=== PATIENT | female | born 1995 | race Two or more races ===

== ENCOUNTER 2025-01-23 13:56 | Emergency (ER) | payer MEDICAID, SELFPAY ==
[2025-01-23 14:09] VITALS: BP 127/88; PULSE 70; RESP 20; TEMP 37.1; O2SAT 100
--- NOTE | 2025-01-23 14:11 | XR_ITS ---
Examination: Abdomen sonogram, Limited Date and time of exam: January 23, 2025, 1449 hours INDICATIONS: Right upper abdominal pain beginning 1 week ago Technique: Real-time lion scale transabdominal sonographic images of the upper abdomen obtained. Findings: Multiple gallstones Normal gallbladder wall Common bile duct 0.6 cm no definite stones Pancreatic head 2.5 cm Liver 16.8 cm fatty infiltration Normal hepatopetal portal venous flow Patent IVC IMPRESSION: Cholelithiasis, negative for cholecystitis Abnormal enlargement common bile duct 6 mm, as clinically warranted, consider MRCP follow-up to exclude common bile duct stones
--- NOTE | 2025-01-23 14:12 | EDNOTE_ITS ---
ED Abdominal Pain RME/HPI General Chief Complaint: Abdominal Pain Stated complaint: UPPER ABD PAIN, N/V Time seen by provider: 01/23/25 14:09 Arrival date/time: 01/23/25 13:56 29-year-old female with no known medical history presents to the emergency room with a chief complaint of epigastric and right upper quadrant abdominal pain x 2 days. Patient has also had multiple episodes of vomiting. Source: patient Mode of arrival: ambulatory Limitations: no limitations Related Data Home Medications ?Medication ?Instructions ?Recorded ?Confirmed vit no.95-ferrous 1 tab PO QDAY 08/03/2307/11 fumarate 28 mg-folic acid 800 mcg tablet () Previous Rx's ?Medication ?Instructions ?Recorded hydrocodone 5 mg-acetaminophen 325 1 tab PO BID PRN pa in #10 tabs 12/21/23 mg tablet Allergies Allergy/AdvReac Type Severity Reaction Status Date / Time No Known Allergies Allergy Verified 08/03/23 06:00 Review of Systems Review of Systems Systems Reviewed: All systems reviewed, normal except as documented Constitutional Constitutional: Reports system reviewed and no additional complaints, except as documented, Denies fatigue, Denies fever(s), Denies headache(s) and Denies weakness Eyes Eyes: Reports system reviewed and no additional complaints, except as documented, Denies blurry vision and Denies change in vision ENT Ears, Nose, Mouth, and Throat: Reports system reviewed and no additional complaints, except as documented, Denies otalgia, Denies headache(s), Denies nasal congestion, Denies throat swelling and Denies vertigo Cardiovascular Cardiovascular: Reports system reviewed and no additional complaints, except as documented, Denies chest pain, Denies dyspnea and Denies dyspnea on exertion Respiratory Respiratory: Reports system reviewed and no additional complaints, except as documented, Denies chest congestion, Denies cough, Denies dyspnea, Denies dyspnea on exertion and Denies wheezing Gastrointestinal Gastrointestinal: Reports system reviewed and no additional complaints, except as documented, Reports abdominal pain, Reports cramping, Reports nausea and Reports vomiting Genitourinary Genitourinary: Reports system reviewed and no additional complaints, except as documented Musculoskeletal Musculoskeletal: Reports system reviewed and no additional complaints, except as documented and Denies back pain Integumentary/Breasts Skin/Breast: Reports system reviewed and no additional complaints, except as documented and Denies wounds Neurologic Neurologic: Reports system reviewed and no additional complaints, except as documented, Denies confusion, Denies headache(s), Denies lack of coordination, Denies vertigo and Denies weakness Psychiatric Psychiatric: Reports system reviewed and no additional complaints, except as documented, Denies anxiety, Denies confusion, Denies depression, Denies paranoia, Denies suicidal ideation and Denies tactile hallucinations Endocrine Endocrine: Reports system reviewed and no additional complaints, except as documented and Denies fatigue Hematologic/Lymphatic Hematologic/Lymphatic: Reports system reviewed and no additional complaints, except as documented and Denies lymphadenopathy Allergic/Immunologic Allergic/Immunologic: Reports system reviewed and no additional complaints, except as documented, Denies throat swelling, Denies urticaria and Denies wheezing Past Medical History Past Medical History NEUROLOGIC: Negative Neurological Disorders or Seizures CARDIAC: Positive Cardiac Disorders (HX. OF PREECLAMPSIA.); Negative Congestive Heart Failure RESPIRATORY: Positive Asthma (LAST USED [place] 3MO AGO.); Negative Chronic Obstructive Pulmonary Disease (COPD) GASTROINTESTINAL: Negative Gastrointestinal Disorders, Hepatitis or Colorectal Cancer GENITOURINARY: Negative Genitourinary Disorders, Renal Disease or Prostate Cancer REPRODUCTIVE: Positive Syphilis; Negative Breast Cancer, Endometriosis, Pelvic Inflammatory Disease, Previous Pregnancies, Testicular Cancer or Uterine Prolapse MUSCULOSKELETAL: Negative Musculoskeletal Disorders or Bone Cancer ENDOCRINE: Negative Endocrine Disorders, Diabetes Mellitus Type 1 or Diabetes Mellitus Type 2 HEMATOLOGIC: Negative Blood Disorders PSYCHO/SOCIAL: Negative Depression or Anxiety OTHER HISTORY: Positive Hospitalization (CHILDBIRTH); Negative Autoimmune Disease, Down Syndrome, Developmental Delay, Shingles, Falls, Blood Transfusions, Blood Transfusion Reaction, Anesthesia Reactions, MRSA, VRSA, Vancomycin-Resistant Enterococci, Human Immunodeficiency Virus (HIV), Chicken Pox, Measles, Mumps, Rubella (Japanese Measles), Pertussis, Clostridium Difficile, Cancer, Breast Cancer, Cervical Cancer, Colorectal Cancer, Lung Cancer, Ovarian Cancer, Prostate Cancer or Testicular Cancer Family History FAMILY HISTORY: Positive Family Respiratory Disorders (EXTENSIVE FAMILY HX. OF ASTHMA.) and Family Surgery (MOTHER-BRAIN TUMOR REMOVAL.); Negative Family Psychiatric Problems, Family Cardiac Disorders, Family Gastrointestinal Problems, Family Cancer or Family Anesthesia Reaction Surgical History SURGICAL: Positive Section (X1) Social History SMOKING STATUS: Never smoker SECOND HAND EXPOSURE: No ED Exam General Limitations: Present no limitations General appearance: Present alert and in no apparent distress Head Head exam: Present atraumatic Eye Eye exam: Present normal appearance, PERRL and EOMI ENT ENT exam: Present normal exam, normal oropharynx and mucous membranes moist Neck Neck exam: Present normal inspection, full ROM and trachea midline Chest Chest inspection: Present normal inspection and symmetric chest wall rise Respiratory Respiratory exam: Present normal lung sounds bilaterally Cardiovascular Cardiovascular exam: Present regular rate, normal rhythm and normal heart sounds Abdominal Exam Abdominal exam: Present soft, tenderness, normal bowel sounds and Doran's sign Abdominal tenderness: Present RUQ, epigastrium and moderate Extremities Exam Extremities exam: Present normal inspection and full ROM Back Exam Back exam: Present normal inspection and full ROM Neurological Exam Neurological exam: Present alert, oriented X3 and CN II-XII intact Psychiatric Psychiatric exam: Present normal affect and normal mood Skin Skin exam: Present warm, dry, intact and normal color Course Quality Measures none Orders Category Date Time Status US gall bladder Stat Exams 01/23/25 14:11 Completed CBC Stat Lab 01/23/25 14:18 Completed CMP [Comprehensive Metabolic Panel] Stat Lab 01/23/25 14:18 Completed HCG Qualitative,Urine Stat Lab 01/23/25 15:39 Completed Lipase Stat Lab 01/23/25 14:18 Completed UA [Urinalysis] Stat Lab 01/23/25 15:39 Completed Urine Culture Stat Lab 01/23/25 15:39 Received Ondansetron Odt [Zofran Odt] Med 01/23/25 14:11 Discontinued 4 mg PO X1 ONE Vital Signs Vital signs: Vital Signs Temperature 98.7 F 01/23/25 14:09 Pulse Rate 70 01/23/25 14:09 Respiratory Rate 20 01/23/25 14:09 Blood Pressure 127/88 H 01/23/25 14:09 Pulse Oximetry (%) 100 01/23/25 14:09 Oxygen Delivery Method Room Air 01/23/25 14:09 Abdominal Pain MDM MDM Narrative MDM Narrative:: 29-year-old female with no known medical history presents to the emergency room with a chief complaint of epigastric and right upper quadrant abdominal pain x 2 days. Patient has also had multiple episodes of vomiting. Patient is hemodynamically stable and in no apparent distress Physical examination shows right upper quadrant abdominal pain and tenderness with palpation. The patient is also having tenderness in the epigastric area of the patient's abdomen. Ultrasound of the gallbladder shows cholelithiasis but is negative for any cholecystitis. There is no obstruction in the common bile duct. Bilirubin and liver enzymes are within normal limits. CBC CMP are within normal limits. Patient was educated to follow-up with a primary care provider as a referral to a general surgeon will be needed for removal of her gallbladder Patient was discharged and educated to follow-up with primary care provider in the next 24 to 48 hours and return to the emergency room for any evidence of worsening signs or symptoms Patient data External records reviewed:: [facility] previous records Clinical information provided by:: patient Social determinants that could affect healthcare access:: none Patient has the following chronic illnesses:: No chronic illness How is presenting disease/condition affected by chronic disease/condition?: no chronic disease Evaluation data The following diagnostics were reviewed and interpreted by me:: lab results and radiology exam(s) Lab and/or radiology exams considered but not ordered:: Labs and radiology exams considered and ordered Interpretation Summary: Ultrasound gallbladder-Findings: Multiple gallstones Normal gallbladder wall Common bile duct 0.6 cm no definite stones Pancreatic head 2.5 cm Liver 16.8 cm fatty infiltration Normal hepatopetal portal venous flow Patent IVC IMPRESSION: Cholelithiasis, negative for cholecystitis Abnormal enlargement common bile duct 6 mm, as clinically warranted, consider MRCP follow-up to exclude common bile duct stones Medications / Prescriptions Medications or Prescriptions considered but not ordered:: Medication given Medication administrations:: Medication Administration History Discontinued Medications Ondansetron HCl (Ondansetron Odt 4 Mg Tabrap) 4 mg PO X1 ONE; Protocol Stop: 01/23/25 14:12 Last Admin: 01/23/25 14:16 Dose: 4 mg Documented By: OA Medication given Consultations Consultation(s) initiated? (list below): No Diagnosis Differential diagnosis abdominal pain: abdominal pain, gastroenteritis and other (Cholelithiasis/cholecystitis) Most likely diagnosis given after review of the tests above:: Cholelithiasis Admission Indicated Admission indicated?: not indicated Admission Request Was there a request for admission?: No Disposition Plan Disposition Plan: Discharge Discharge Attestation Discharge Attestation: The patient and all family members were given an opportunity to ask questions and understood the discharge instructions. Discharge instructions specifically effects, indications for sooner follow up or return to the emergency department, and the expected course of current diagnosis. Patient condition: Stable Discharge Plan Plan Patient Disposition: HOME (Self Care) Discharge Disposition comment: Stable Prescriptions/Referrals Prescriptions/Med Rec: No Action PNV no.95-ferrous fumarate-FA [] 28 mg iron- 800 mcg tablet 1 tab PO QDAY Patient Comments: TAKE 1 TABLET BY MOUTH EVERY DAY hydrocodone-acetaminophen 5-325 mg tablet 1 tab PO BID MDD 10mg PRN (Reason: pain) Qty: 10 0RF Referrals: Kalpesh Bravo MD [Primary Care Provider, Family Practice] - In 1 week Problem List Clinical Impression: Cholelithiasis Patient/Caregiver Discharge Instructions Education Materials: What Are Gallstones, Treating Gallstones, ED Gallstones with Biliary Colic Additional Instructions: Please follow-up with your primary care provider in the next 24 to 48 hours Your ultrasound of your gallbladder found multiple gallstones. At this time your gallbladder does not need to be removed in an emergency setting Please follow-up with your primary care provider as a referral to a general surgeon for an outpatient removal of her gallbladder may be indicated Your blood work was negative for any acute infection or any obstruction in your common bile duct For any evidence of worsening signs or symptoms return to emergency room immediately Print Language: Faroese Stand Alone Forms: Svetlana Award Info., Work/School Release, Patient Portal Info Letter
[2025-01-23] MEDS: ONDANSETRON ODT 4 MG TABRAP PO (14:16)
[2025-01-23 14:26] LABS: Basophils # (Auto) 0.1 Thou/mm3 (0.0-0.2); Basophils % (Auto) 0 % (0-2.5); Eosinophils # (Auto) 0.2 Thou/mm3 (0.0-0.5); Eosinophils % (Auto) 2 % (0-10); Hematocrit 39.2 % (36.0-46.0); Hemoglobin 13.4 g/dL (12.0-16.0); Immature Granulocytes Auto 0.04 Thou/mm3 (0.00-0.00); Lymphocytes # (Auto) 3.3 Thou/mm3 (1.0-4.8); Lymphocytes % (Auto) 28 % (10-50); Mean Corpuscular HGB Conc 34.2 g/dl (31.0-37.0); Mean Corpuscular Hemoglobin 28.9 pg (25.0-35.0); Mean Corpuscular Volume 85 fL (80-100); Monocytes # (Auto) 0.8 Thou/mm3 (0.0-0.8); Monocytes % (Auto) 7 % (0-12); Neutrophils # (Auto) 7.2 Thou/mm3 (1.8-7.7); Neutrophils % (Auto) 62 % (37-80); Nucleated Red Blood Cell # 0.00 Thou/mm3 (0.00-0.00); Nucleated Red Blood Cell % 0 /100 WBC (0); Platelet Count 287 Thou/mm3 (140-440); RDW Standard Deviation 38.9 fL (36.4-46.3); Red Blood Count 4.63 Miln/mm3 (4.00-5.20); White Blood Count 11.6 Thou/mm3 (3.6-11.0)
[2025-01-23 14:46] LABS: Alanine Aminotransferase 29 U/L (10-49); Albumin, Serum 4.5 gm/dL (3.5-5.0); Albumin/Globulin Ratio 1.8 (1.2-2.2); Alkaline Phosphatase 179 U/L (46-116); Anion Gap 8 (7-16); Aspartate Amino Transferase 37 U/L (0-34); BUN/Creatinine Ratio 18 Ratio (12-20); Bilirubin,Total 0.5 mg/dL (0.3-1.2); Blood Urea Nitrogen 11 mg/dL (9-23); Calcium 9.1 mg/dL (8.3-10.6); Calcium (Corrected) 9.1 mg/dL (8.5-10.1); Carbon Dioxide 27.3 mMol/L (20.0-31.0); Chloride 106 mMol/L (98-107); Creatinine (Component) 0.6 mg/dL (0.6-1.3); Globulin 2.5 gm/dL (2.3-3.5); Glucose 88 mg/dL (74-106); Lipase 37 U/L (12-53); Osmolality,Calculated 279 (275-295); Potassium 3.8 mMol/L (3.4-5.1); Sodium 141 mMol/L (136-145); Total Protein 7.0 gm/dL (5.7-8.2); eGFR > 60 See Note
[2025-01-23 15:50] LABS: Collection Type, Urine Clean Catch
[2025-01-23 15:53] LABS: HCG Qualitative,Urine Negative
[2025-01-23 15:54] LABS: Bacteria,Urine Rare; Bilirubin,Urine Negative (Negative); Blood,Urine Negative (Negative); Clarity,Urine Clear (Clear/Hazy); Color,Urine Yellow (Lt Yel-Yel); Glucose, Urine Negative (Negative); Ketones,Urine Negative (Negative); Leukocyte Esterase,Urine Negative (Negative); Nitrite,Urine Negative (Negative); PH,Urine 6.5 (5.0-7.0); Protein,Urine Trace (Neg - Trace); RBC,Urine 5 /hpf (0-3); Specific Gravity,Urine 1.034 (1.001-1.035); Squamous Epithelial Cell,Urine 11 /hpf (0-5); Urobilinogen,Urine 2.0 mg/dL (0.0-1.0); WBC,Urine 2 /hpf (0-5)
== END 2025-01-23 16:50 | disposition home or self-care (01) ==
PROVIDERS: Emergency Provider Nurse Practitioner Family; PCP Family Medicine
DX: K80.70 Calculus of gallbladder and bile duct without cholecystitis without obstruction (principal); K76.0 Fatty (change of) liver, not elsewhere classified
CPT/HCPCS: 36415; 76705; 80053; 81001; 81025; 83690; 85025; 87086; 99283; Q0162

== ENCOUNTER 2025-01-23 21:04 | Emergency (ER) | payer MEDICAID, SELFPAY ==
[2025-01-23 21:46] VITALS: BP 127/82; PULSE 68; RESP 20; TEMP 36.4; O2SAT 100
--- NOTE | 2025-01-23 21:51 | EDNOTE_ITS ---
ED Abdominal Pain RME/HPI General Chief Complaint: Abdominal Pain Stated complaint: ABD PAIN Time seen by provider: 01/23/25 21:40 Arrival date/time: 01/23/25 21:04 29-year-old female patient came in for evaluation regarding right upper quadrant pain. Patient was having right upper quadrant pain since last night, came here this morning, and was noted to have multiple gallstones with no sign of acute cholecystitis. Patient was sent home on [place]. Patient took [place] however pain is still lingering, at this time severity 10 out of 10 associated with nausea and vomiting. No fever noted patient denies any diarrhea or constipation denies any other complaints no medications taken prior to ER visit. Related Data Home Medications ?Medication ?Instructions ?Recorded ?Confirmed vit no.95-ferrous 1 tab PO QDAY 08/03/2307/11 fumarate 28 mg-folic acid 800 mcg tablet () Previous Rx's ?Medication ?Instructions ?Recorded hydrocodone 5 mg-acetaminophen 325 1 tab PO BID PRN pa in #10 tabs 12/21/23 mg tablet hydrocodone 5 mg-acetaminophen 325 1 tab PO BID PRN pa in #10 tabs 01/23/25 mg tablet Allergies Allergy/AdvReac Type Severity Reaction Status Date / Time No Known Allergies Allergy Verified 01/23/25 21:05 Review of Systems Review of Systems Narrative Review of Systems: Review of system reviewed and within normal limits except mentioned in HPI ED Exam Narrative Physical exam: VITAL SIGNS: Reviewed. GENERAL APPEARANCE: Alert and interactive, follows commands, no acute distress, HEAD AND FACE: Non-traumatic. ENT: PERRL, pink conjunctivitis, eyelid no trauma, Mucous membrane moist. NECK: Supple, nontender, no nuchal rigidity. CHEST: No tenderness, no crepitus, no paradoxical movement, no retractions. LUNGS: Clear, well ventilated, symmetric, no rales, no wheezing, no ronchi, no stridor, good breath sounds bilaterally. HEART: Regular rate, regular rhythm, no murmur, no gallops. ABDOMEN: Soft, positive bowel sounds, nondistended, no guarding, right upper quadrant tenderness, no rebound, no masses, RECTAL: Deferred. GENITAL: Deferred. NEUROLOGICAL: Gross motor function intact sensory function intact, Appropriate for age. MUSCULOSKELETAL: low back nontender, full range of motion. EXTREMITIES: Nontender, full range of motion. SKIN: Color pink, dry, no rash, no lacerations, no abrasions, no contusions. LYMPHATICS: Deferred. Course Quality Measures none Orders Category Date Time Status CT Screening NOW Care 01/23/25 22:44 Completed IV [Insert IV] NOW Care 01/23/25 22:10 Completed MRI Screening NOW Care 01/23/25 23:12 Completed Referral - Sales Order Coordinator Stat Cons 01/24/25 11:[address] abdomen pelvis w con Stat Exams 01/23/25 22:44 Completed MR MRCP Stat Exams 01/24/25 Completed CBC [CBC] Stat Lab 01/23/25 22:06 Completed CMP [Comprehensive Metabolic Panel] Stat Lab 01/23/25 22:06 Completed Lipase Stat Lab 01/23/25 22:06 Completed Cefoxitin [Mefoxin] 2 gm Med 01/23/25 22:45 Discontinued SODIUM CHLORIDE 0.9% (Popper) [Ns 0.9% (P)] 50 ml IV X1 Famotidine Inj [Pepcid Inj] Med 01/23/25 21:49 Discontinued 20 mg IVP X1 ONE HYDROmorphone INJ [Dilaudid Inj] Med 01/24/25 00:30 Discontinued 0.5 mg IVP Q30MIN PRN HYDROmorphone INJ [Dilaudid Inj] Med 01/24/25 09:52 Discontinued 0.5 mg IVP X1 ONE Ketorolac Inj [Toradol Inj] Med 01/23/25 21:49 Discontinued 30 mg IVP X1 ONE Ondansetron Inj [Zofran Inj] Med 01/23/25 21:49 Discontinued 4 mg IVP X1 ONE Ondansetron Inj [Zofran Inj] Med 01/24/25 00:27 Discontinued 4 mg IVP X1 ONE Ondansetron Inj [Zofran Inj] Med 01/24/25 09:52 Discontinued 4 mg IVP X1 ONE Piper/Tazo 3.375 gm Premix [Zosyn] Med 01/24/25 11:16 Discontinued 3.375 gm in 50 ml IV X1 Ringers Lactated 1000 ml [Lactated Ringers] 1,000 ml Med 01/23/25 21:50 Discontinued IV 999 mls/hr Ringers Lactated 1000 ml [Lactated Ringers] 1,000 ml Med 01/24/25 11:19 Discontinued IV 999 mls/hr Vital Signs Vital signs: Vital Signs Temperature 97.6 F 01/23/25 21:46 Pulse Rate 68 01/23/25 21:46 Respiratory Rate 20 01/23/25 21:46 Blood Pressure 127/82 01/23/25 21:46 Pulse Oximetry (%) 100 01/23/25 21:46 Oxygen Delivery Method Room Air 01/23/25 21:46 Abdominal Pain MDM MDM Narrative MDM Narrative:: 29-year-old female patient came in for evaluation regarding right upper quadrant pain. Patient was having right upper quadrant pain since last night, came here this morning, and was noted to have multiple gallstones with no sign of acute cholecystitis. Patient was sent home on [place]. Patient took [place] however pain is still lingering, at this time severity 10 out of 10 associated with nausea and vomiting. No fever noted patient denies any diarrhea or constipation denies any other complaints no medications taken prior to ER visit. Patient's WBC count today went up to 25,000 from 11,000 several hours ago. LFTs and total bili was also noted to be slightly elevated. I did a CT scan of the abdomen pelvis with contrast. Patient probably needing MRCP. In the morning MRCP showed acute pancreatitis, common bile duct stone x 2 with dilated common bile duct, and she also showed acute calculous cholecystitis. Patient received multiple pain medication, morphine and Dilaudid, IV fluids, IV cefoxitin last night and today patient received IV Zosyn. Plan of care discussed with the patient, who agrees to be transferred Patient is to be transferred for ERCP. nobody in this hospital is doing ERCP at this time. I discussed the case with GI specialist from [facility], who accepted the patient. Dr. Palma none Patient data External records reviewed:: None Clinical information provided by:: patient Social determinants that could affect healthcare access:: none Patient has the following chronic illnesses:: None How is presenting disease/condition affected by chronic disease/condition?: no chronic disease Evaluation data The following diagnostics were reviewed and interpreted by me:: lab results and radiology exam(s) Lab and/or radiology exams considered but not ordered:: None Interpretation Summary: Laboratory workup significant for a lipase above 3500, leukocytosis of 25,000, MRCP showed acute calculous cholecystitis with acute pancreatitis and common bile duct stone with dilated common bile duct Medications / Prescriptions Medications or Prescriptions considered but not ordered:: None Medication administrations:: Medication Administration History Discontinued Medications Famotidine (Famotidine Inj 10 Mg/Ml Vial 2 Ml) 20 mg IVP X1 ONE Stop: 01/23/25 21:50 Last Admin: 01/23/25 22:16 Dose: 20 mg Documented By: JESSICA Hydromorphone HCl (Hydromorphone Inj 2 Mg/Ml Vial) 0.5 mg IVP Q30MIN PRN PRN Reason: PAIN Stop: 01/29/25 00:29 Last Admin: 01/24/25 06:40 Dose: 0.5 mg Documented By: Admin: 01/24/25 00:42 Dose: 0.5 mg Documented By: JESSICA Hydromorphone HCl (Hydromorphone Inj 2 Mg/Ml Vial) 0.5 mg IVP X1 ONE Stop: 01/24/25 09:53 Last Admin: 01/24/25 09:58 Dose: 0.5 mg Documented By: BY Lactated Ringer's (Lactated Ringers) 1,000 mls @ 999 mls/hr IV .Q1H1M ONE Stop: 01/23/25 22:50 Last Infusion: 01/23/25 23:31 Dose: Infused Documented By: Admin: 01/23/25 22:18 Dose: 999 mls/hr Documented By: JESSICA Cefoxitin Sodium 2 gm/ Sodium (Chloride) 50 mls @ 100 mls/hr IV X1 ONE Stop: 01/23/25 23:14 Last Infusion: 01/24/25 00:06 Dose: Infused Documented By: Admin: 01/23/25 23:29 Dose: 100 mls/hr Documented By: JESSICA Piperacillin/Tazobactam/Dextrose (Zosyn) 3.375 gm in 50 mls @ 100 mls/hr IV X1 ONE; Protocol Stop: 01/24/25 11:45 Last Infusion: 01/24/25 12:18 Dose: Infused Documented By: Admin: 01/24/25 11:48 Dose: 100 mls/hr Documented By: GLENN Lactated Ringer's (Lactated Ringers) 1,000 mls @ 999 mls/hr IV .Q1H1M ONE Stop: 01/24/25 12:19 Last Admin: 01/24/25 11:46 Dose: 999 mls/hr Documented By: GLENN Ketorolac Tromethamine (Ketorolac Inj 30 Mg/Ml Vial) 30 mg IVP X1 ONE Stop: 01/23/25 21:50 Last Admin: 01/23/25 22:13 Dose: 30 mg Documented By: JESSICA Ondansetron HCl (Ondansetron Inj 2 Mg/Ml Inj 2 Ml) 4 mg IVP X1 ONE; Protocol Stop: 01/23/25 21:50 Last Admin: 01/23/25 22:11 Dose: 4 mg Documented By: JESSICA Ondansetron HCl (Ondansetron Inj 2 Mg/Ml Inj 2 Ml) 4 mg IVP X1 ONE; Protocol Stop: 01/24/25 00:28 Last Admin: 01/24/25 00:40 Dose: 4 mg Documented By: JESSICA Ondansetron HCl (Ondansetron Inj 2 Mg/Ml Inj 2 Ml) 4 mg IVP X1 ONE; Protocol Stop: 01/24/25 09:53 Last Admin: 01/24/25 09:58 Dose: 4 mg Documented By: BY See above Consultations Consultation(s) initiated? (list below): Yes Consultation #1 (Physician, Specialty, Details): GI specialist from [facility] Diagnosis Differential diagnosis abdominal pain: abdominal pain and pancreatitis Most likely diagnosis given after review of the tests above:: Acute pancreatitis, acute calculous cholecystitis, choledocholithiasis obstructive jaundice Admission Indicated Admission indicated?: indicated Admission Request Was there a request for admission?: No Disposition Plan Disposition Plan: Transfer Discharge Plan Plan Patient Disposition: [facility] Pt Being Transferred to: [facility] Prescriptions/Referrals Prescriptions/Med Rec: No Action PNV no.95-ferrous fumarate-FA [] 28 mg iron- 800 mcg tablet 1 tab PO QDAY Patient Comments: TAKE 1 TABLET BY MOUTH EVERY DAY hydrocodone-acetaminophen 5-325 mg tablet 1 tab PO BID MDD 10mg PRN (Reason: pain) Qty: 10 0RF hydrocodone-acetaminophen 5-325 mg tablet 1 tab PO BID MDD 10mg PRN (Reason: pain) Qty: 10 0RF Referrals: No Primary/Family,Physician [Referring Provider] - In 1 week Problem List Clinical Impression: Pancreatitis, Acute calculous cholecystitis, Choledocholithiasis Patient/Caregiver Discharge Instructions Print Language: Wolof Stand Alone Forms: [employer] Award Info., Patient Portal Info Letter
[2025-01-23] MEDS: ONDANSETRON INJ 2 MG/ML INJ 2 ML 4 MG IVP (22:11)
[2025-01-23] MEDS: KETOROLAC INJ 30 MG/ML VIAL IVP (22:13)
[2025-01-23] MEDS: FAMOTIDINE INJ 10 MG/ML VIAL 2 ML 20 MG IVP (22:16)
[2025-01-23] MEDS: RINGERS LACTATED 1000 ML 1,000 ML 999 ML IV (22:18)
[2025-01-23 22:22] LABS: Basophils # (Auto) 0.1 Thou/mm3 (0.0-0.2); Basophils % (Auto) 0 % (0-2.5); Eosinophils # (Auto) 0.1 Thou/mm3 (0.0-0.5); Eosinophils % (Auto) 0 % (0-10); Hematocrit 41.1 % (36.0-46.0); Hemoglobin 14.1 g/dL (12.0-16.0); Immature Granulocytes Auto 0.12 Thou/mm3 (0.00-0.00); Lymphocytes # (Auto) 2.1 Thou/mm3 (1.0-4.8); Lymphocytes % (Auto) 8 % (10-50); Mean Corpuscular HGB Conc 34.3 g/dl (31.0-37.0); Mean Corpuscular Hemoglobin 28.7 pg (25.0-35.0); Mean Corpuscular Volume 84 fL (80-100); Monocytes # (Auto) 1.3 Thou/mm3 (0.0-0.8); Monocytes % (Auto) 5 % (0-12); Neutrophils # (Auto) 22.0 Thou/mm3 (1.8-7.7); Neutrophils % (Auto) 86 % (37-80); Nucleated Red Blood Cell # 0.00 Thou/mm3 (0.00-0.00); Nucleated Red Blood Cell % 0 /100 WBC (0); Platelet Count 286 Thou/mm3 (140-440); RDW Standard Deviation 39.5 fL (36.4-46.3); Red Blood Count 4.92 Miln/mm3 (4.00-5.20); White Blood Count 25.6 Thou/mm3 (3.6-11.0)
--- NOTE | 2025-01-23 22:44 | XR_ITS ---
Examination: CT abdomen with intravenous contrast CT pelvis with intravenous contrast 2-D coronal reconstructions 2-D sagittal reconstructions Date and time of exam: January 23, 2025, 11:00 p.m INDICATIONS: Right upper abdominal pain today, enlargement common bile duct on gallbladder sonogram today. CTDI: vol (mGy) 9.85 DLP: (mGycm) 616 Technique: Multiple axial sections of the abdomen and pelvis have been obtained. 64 slice high-resolution scanner used. 3 mm axial sections have been obtained, post intravenous injection 60 cc [id number] 2-D sagittal, coronal reconstructions obtained. Low dose protocols were performed. One or more of the following dose reduction techniques were used; automated exposure control, adjustment of the mA and/or KV according to patient size, use of iterative reconstruction technique. Findings: No focal liver lesions Gallstones, gallbladder wall is thickened Enlarged common hepatic common bile duct 8 mm no stones Acute pancreatitis marked edema surrounding the pancreas Spleen is not enlarged No hydronephrosis Aorta normal size Normal appendix No bowel obstruction 25 mm left ovarian cyst Mild free fluid in the pelvis Bladder intact Osseous structures intact IMPRESSION: Acute calculus cholecystitis Enlarged common hepatic common bile duct Acute pancreatitis Consider MRCP follow-up to exclude common bile duct stones
[2025-01-23 22:46] LABS: Alanine Aminotransferase 183 U/L (10-49); Albumin, Serum 4.4 gm/dL (3.5-5.0); Albumin/Globulin Ratio 1.6 (1.2-2.2); Alkaline Phosphatase 203 U/L (46-116); Anion Gap 11 (7-16); Aspartate Amino Transferase 280 U/L (0-34); BUN/Creatinine Ratio 17 Ratio (12-20); Bilirubin,Total 1.3 mg/dL (0.3-1.2); Blood Urea Nitrogen 10 mg/dL (9-23); Calcium 9.2 mg/dL (8.3-10.6); Calcium (Corrected) 9.2 mg/dL (8.5-10.1); Carbon Dioxide 21.5 mMol/L (20.0-31.0); Chloride 107 mMol/L (98-107); Creatinine (Component) 0.6 mg/dL (0.6-1.3); Globulin 2.7 gm/dL (2.3-3.5); Glucose 197 mg/dL (74-106); Osmolality,Calculated 281 (275-295); Potassium 3.1 mMol/L (3.4-5.1); Sodium 139 mMol/L (136-145); Total Protein 7.1 gm/dL (5.7-8.2); eGFR > 60 See Note
--- NOTE | 2025-01-23 23:18 | EDNOTE_ITS ---
Emergency Room Addendum <Aurelia Aberu - Last Filed: 01/24/25 05:30> Addendum Narrative: 2300: Care assumed from Bob Leong NP, (emergency mid-level provider). Past medical, surgical, social and family history reviewed. Vitals and home medications reviewed. Results and treatment plan discussed. I will assume the care of the patient at this time and will follow the patient, pending MRCP. The following addendum documentation note is intended to reflect any pending information, findings, or radiology results not included in the patient?s initial chart by the previous shift scribe. 0830: Care assumed by Dr. Johnson (emergency physician). Past medical, surgical, social and family history reviewed. Vitals and home medications reviewed. Results and treatment plan discussed. They will assume the care of the patient at this time and will follow the patient, pending MRCP. <Nisha Castillo - Last Filed: 01/24/25 08:38> Addendum Narrative: 2300: Care assumed from Bob Leong NP, (emergency mid-level provider). Past medical, surgical, social and family history reviewed. Vitals and home medications reviewed. Results and treatment plan discussed. I will assume the care of the patient at this time and will follow the patient, pending MRCP. The following addendum documentation note is intended to reflect any pending in formation, findings, or radiology results not included in the patient?s initial chart by the previous shift scribe. 0830: Care assumed by Dr. Johnson (emergency physician). Past medical, surgical, social and family history reviewed. Vitals and home medications reviewed. Results and treatment plan discussed. They will assume the care of the patient at this time and will follow the patient, pending MRCP.
[2025-01-23 23:21] LABS: Lipase > 3500 U/L (12-53)
[2025-01-23] MEDS: CEFOXITIN 2 GM in SODIUM CHLORIDE 0.9% (Popper) 50 ML IV (23:29)
[2025-01-23 23:56] VITALS: BP 139/99; PULSE 75; RESP 16; TEMP 36.7; O2SAT 99
[2025-01-24] VITALS (8 sets, daily range): BP systolic 112–142; BP diastolic 62–89; PULSE 85–134; RESP 16–18; TEMP 36.6–37.3; O2SAT 94–99
--- NOTE | 2025-01-24 | XR_ITS ---
MRI abdomen, without contrast. MRCP Date and time of exam: January 24, 2025, 0838 hours INDICATIONS: Right upper abdominal pain with elevated liver function test today, enlarged common bile duct on ultrasound study Technique: Multiple axial and coronal images of the abdomen have been obtained with the Siemens 1.5T MRI scanner. Images obtained included T1 weighted transverse images, T2-weighted transverse images, T2-weighted transverse images fat-suppressed, T2 weighted haste fat suppressed transverse images, T1 weighted images, in and out of phase images, T2-weighted coronal images, breath hold, T2 weighted haze coronal images as well as T2 weighted coronal thick slab images, MRCP. Findings: Contracted gallbladder, gallstones, gallbladder wall thickening and edema Mild intrahepatic biliary tract dilatation Enlarged common bile duct common hepatic duct up to 6 mm 4 mm, 4 mm common bile duct stones, coronal image 14 Pancreatitis with diffuse edema surrounding the pancreas no pseudocyst Spleen not enlarged Free fluid in the lower abdomen Aorta normal size No hydronephrosis Borderline splenomegaly 12.5 cm IMPRESSION: Acute calculus cholecystitis Extrahepatic biliary tract dilatation At least 2 common bile duct stones each 4 mm Acute pancreatitis
[2025-01-24] MEDS: ONDANSETRON INJ 2 MG/ML INJ 2 ML 4 MG IVP ×2 (00:40→09:58)
[2025-01-24] MEDS: HYDROmorphone INJ 2 MG/ML VIAL 0.5 MG IVP ×3 (00:42→09:58)
--- NOTE | 2025-01-24 08:38 | PD.EDADDENDU ---
Emergency Room Addendum Addendum Narrative: 0830: Care assumed from Dr. Celaya the previous shift emergency physician. Past medical, surgical, social and family history reviewed. Vitals and home medications reviewed. I will assume the care of the patient at this time, [facility] Please refer to the emergency department record for history and examination from initial visit.? Physical exam by me shows patient under no acute distress at this time. 1100: Angelita Leong took over care. Was his patient last night and he will follow up with the patient. Please see his note.
--- NOTE | 2025-01-24 11:24 | PC.CC ---
Addendum entered by Maria L Rivera RN 01/24/25 12:35: 1225: Called [facility], left VM about transport ETA. 1220: Transport ETA given to BRUNA Thrasher. 1200: Transfer packet w/ CDX1 created and taken to ED. Informed BRUNA Thrasher and Bedside Nurse Pebbles. 1140: Peer to peer between Dr. Palma and Bob performed. Pt accepted ED to ED. 1135: conference call between [place] and [facility] initiated. Original Note: 1119: Spoke to [facility], informed him transfer request to [facility] has been initiated.. 1118: Called [facility], spoke to [place]. She confirmed GI who can perform ERCP is oncall today. Clinicals and imaging sent. She will call back after she reviews. 1117: received transfer request for GI for ERCP.
[2025-01-24] MEDS: RINGERS LACTATED 1000 ML 1,000 ML 999 ML IV (11:46)
[2025-01-24] MEDS: PIPER/TAZO 3.375 GM PREMIX 3.375 GM/50 ML BAG IV (11:48)
--- NOTE | 2025-01-24 12:42 | PC.NURSE ---
patient being picked up for transfer to [facility]
== END 2025-01-24 12:45 | disposition short-term general hospital (02) ==
PROVIDERS: Nurse Practitioner Family; Emergency Provider Family Medicine; PCP Family Medicine
DX: K85.90 Acute pancreatitis without necrosis or infection, unspecified (principal); K80.62 Calculus of gallbladder and bile duct with acute cholecystitis without obstruction
CPT/HCPCS: 36415; 74177; 74181; 80053; 83690; 85025; 96361; 96365; 96366; 96375; 96376; 99284; A4649; J0694; J1171; J1885; J2405; J2543; J3490; J7050; J7120; Q9967